=== PATIENT | female | born 1955 | race Caucasian/White ===

== ENCOUNTER 2017-11-20 11:28 | Observation (INO) | payer OTHER ==
[2017-11-20 12:56] LABS: ADD MAN DIFF? NO
[2017-11-20 12:58] LABS: WHITE BLOOD COUNT 6.1 10^3/ul (4.8-10.8)
[2017-11-20 12:58] LABS: BASOPHILS % 0.3 % (0.0-2.0); EOSINOPHILS % 0.5 % (0.0-7.0); HEMATOCRIT 41.2 % (37.0-47.0); HEMOGLOBIN 13.6 g/dl (12.0-16.0); LYMPHOCYTES # 1.6 10^3/ul (0.8-2.9); LYMPHOCYTES % 26.4 % (15.0-51.0); MEAN CORPUSCULAR VOLUME 90.7 fl (82.0-101.0); MEAN PLATELET VOLUME 10.4 fl (7.4-10.4); MONOCYTE # 0.3 10^3/ul (0.3-0.9); MONOCYTES % 5.2 % (0.0-11.0); NEUTROPHIL # 4.1 10^3/ul (1.6-7.5); NEUTROPHILS % 67.4 % (39.0-77.0); PLATELET COUNT 215 10^3/UL (140-415); RED BLOOD COUNT 4.54 10^6/ul (4.20-5.40); RED CELL DISTRIBUTION WIDTH 11.9 % (11.5-14.5)
[2017-11-20] MEDS: SOD CHLORIDE 0.9% 1,000 ML IV ×2 (13:01→23:19)
[2017-11-20 13:19] LABS: ANION GAP 14 (8-16); BLOOD UREA NITROGEN 13 mg/dl (7-20); CALCIUM 8.9 mg/dl (8.4-10.2); CARBON DIOXIDE 24 mmol/L (21-31); CHLORIDE 111 mmol/L (97-110); CREATININE 0.71 mg/dl (0.44-1.00); GLUCOSE 108 mg/dl (70-220); MAGNESIUM 2.1 mg/dl (1.7-2.5); POTASSIUM 3.8 mmol/L (3.5-5.1); SODIUM 145 mmol/L (135-144)
[2017-11-20 13:28] LABS: TROPONIN-I < 0.010 ng/ml (0.000-0.120)
[2017-11-20] MEDS: hydrALAzine 20 MG INJ IV ×2 (14:23→17:32)
[2017-11-20] MEDS ORDERED: HYDROCODONE/APAP (5/325) TAB PO (16:30)
[2017-11-20] MEDS ORDERED: ONDANSETRON 4 MG INJ IV ×2 (16:30)
[2017-11-20] MEDS ORDERED: NACL 0.9% 3 ML SYG IV (16:30)
[2017-11-20] MEDS ORDERED: ACETAMINOPHEN 325 MG TAB PO ×2 (16:30)
[2017-11-20] MEDS ORDERED: BISACODYL (EC) 5 MG TAB PO (16:30)
[2017-11-20] MEDS ORDERED: LORAZEPAM 0.5 MG TAB PO ×2 (16:30)
[2017-11-20] MEDS ORDERED: morphine 2 MG INJ IV (16:30)
[2017-11-20 16:39] LABS: FREE T4 (FREE THYROXINE) 0.81 ng/dl (0.78-2.44)
[2017-11-20 17:41] LABS: CREATINE KINASE 70 IU/L (23-200)
[2017-11-20 17:54] LABS: CK INDEX 2.7; CK-MB 1.87 ng/ml (0.0-2.4); TROPONIN-I < 0.010 ng/ml (0.000-0.120)
[2017-11-20] MEDS: METOPROLOL 5 MG INJ IV ×2 (19:36→20:13)
[2017-11-20] MEDS: DILTIAZEM-D5W 125MG/125ML DRIP 125 ML IV (21:40)
[2017-11-20] MEDS ORDERED: HEPARIN 5,000 UNIT/0.5 ML VIAL SC (22:00)
[2017-11-20 23:12] LABS: CREATINE KINASE 66 IU/L (23-200)
[2017-11-20] MEDS: ATORVASTATIN 20 MG TAB PO (23:20)
[2017-11-20 23:23] LABS: CK INDEX 2.6; CK-MB 1.69 ng/ml (0.0-2.4); TROPONIN-I < 0.010 ng/ml (0.000-0.120)
[2017-11-20] MEDS: METOPROLOL 25 MG TAB PO (23:23)
[2017-11-20] MEDS: APIXABAN 5 MG TABLET PO (23:23)
[2017-11-21] MEDS: DILTIAZEM-D5W 125MG/125ML DRIP 125 ML IV ×2 (00:22→06:25)
[2017-11-21 07:25] LABS: ADD MAN DIFF? NO
[2017-11-21 07:34] LABS: BASOPHILS % 0.4 % (0.0-2.0); EOSINOPHILS # 0.1 10^3/ul (0.0-0.5); EOSINOPHILS % 0.8 % (0.0-7.0); HEMATOCRIT 45.4 % (37.0-47.0); HEMOGLOBIN 14.7 g/dl (12.0-16.0); LYMPHOCYTES # 2.5 10^3/ul (0.8-2.9); LYMPHOCYTES % 29.7 % (15.0-51.0); MEAN CORPUSCULAR HEMOGLOBIN 29.3 pg (29.0-33.0); MEAN CORPUSCULAR HGB CONC 32.4 g/dl (32.0-37.0); MEAN CORPUSCULAR VOLUME 90.4 fl (82.0-101.0); MEAN PLATELET VOLUME 10.9 fl (7.4-10.4); MONOCYTE # 0.5 10^3/ul (0.3-0.9); MONOCYTES % 6.3 % (0.0-11.0); NEUTROPHIL # 5.4 10^3/ul (1.6-7.5); NEUTROPHILS % 62.6 % (39.0-77.0); PLATELET COUNT 239 10^3/UL (140-415); RED BLOOD COUNT 5.02 10^6/ul (4.20-5.40); RED CELL DISTRIBUTION WIDTH 12.4 % (11.5-14.5)
[2017-11-21 07:34] LABS: WHITE BLOOD COUNT 8.6 10^3/ul (4.8-10.8)
[2017-11-21 08:11] LABS: HEMOGLOBIN A1C 5.8 % (0-5.9)
[2017-11-21 08:15] LABS: ALANINE AMINOTRANSFERASE 23 IU/L (13-69); ALBUMIN 4.4 g/dl (3.3-4.9); ALBUMIN/GLOBULIN RATIO 1.33; ALKALINE PHOSPHATASE 59 IU/L (42-121); ANION GAP 15 (8-16); ASPARTATE AMINO TRANSFERASE 23 IU/L (15-46); BILIRUBIN,INDIRECT 1.2 mg/dl (0-1.1); BILIRUBIN,TOTAL 1.2 mg/dl (0.2-1.3); BLOOD UREA NITROGEN 11 mg/dl (7-20); CALCIUM 8.9 mg/dl (8.4-10.2); CARBON DIOXIDE 23 mmol/L (21-31); CHLORIDE 111 mmol/L (97-110); CHOL/HDL RATIO 3.6 RATIO; CHOLESTEROL 169 mg/dl (100-200); CREATININE 0.63 mg/dl (0.44-1.00); GLUCOSE 109 mg/dl (70-220); HDL CHOLESTEROL 46 mg/dl (35-98); LDL CHOLESTEROL,CALCULATED 103 mg/dl; MAGNESIUM 2.1 mg/dl (1.7-2.5); POTASSIUM 3.7 mmol/L (3.5-5.1); SODIUM 145 mmol/L (135-144); TOTAL PROTEIN 7.7 g/dl (6.1-8.1); TRIGLYCERIDES 102 mg/dl (0-149)
[2017-11-21] MEDS: METOPROLOL 25 MG TAB PO ×3 (08:46→20:42)
[2017-11-21] MEDS: LOSARTAN 50 MG TAB PO (08:46)
[2017-11-21] MEDS: APIXABAN 5 MG TABLET PO ×2 (08:46→20:42)
[2017-11-21] MEDS: PAROXETINE 20 MG TAB PO (08:46)
[2017-11-21] MEDS ORDERED: ERGOCALCIFEROL (8000 UNITS/ML PO SYG) PO (09:00)
[2017-11-21] MEDS: ERGOCALCIFEROL (8000 UNITS/ML PO SYG) PO (10:18)
[2017-11-21] MEDS: POTASSIUM CHLORIDE (SR) 20 MEQ TAB PO (13:43)
[2017-11-21] MEDS: SOD CHLORIDE 0.9% 1,000 ML IV (16:22)
[2017-11-21] MEDS: AMIODARONE 200 MG TAB PO ×2 (16:28→20:42)
[2017-11-21] MEDS: ATORVASTATIN 20 MG TAB PO (20:42)
[2017-11-22 06:55] LABS: ADD MAN DIFF? NO
[2017-11-22 06:59] LABS: BASOPHILS % 0.3 % (0.0-2.0); EOSINOPHILS # 0.2 10^3/ul (0.0-0.5); EOSINOPHILS % 1.6 % (0.0-7.0); HEMATOCRIT 42.7 % (37.0-47.0); HEMOGLOBIN 13.5 g/dl (12.0-16.0); LYMPHOCYTES # 3.7 10^3/ul (0.8-2.9); LYMPHOCYTES % 39.3 % (15.0-51.0); MEAN CORPUSCULAR HEMOGLOBIN 29.2 pg (29.0-33.0); MEAN CORPUSCULAR HGB CONC 31.6 g/dl (32.0-37.0); MEAN CORPUSCULAR VOLUME 92.2 fl (82.0-101.0); MEAN PLATELET VOLUME 10.8 fl (7.4-10.4); MONOCYTE # 0.6 10^3/ul (0.3-0.9); MONOCYTES % 5.9 % (0.0-11.0); NEUTROPHILS % 52.7 % (39.0-77.0); PLATELET COUNT 231 10^3/UL (140-415); RED BLOOD COUNT 4.63 10^6/ul (4.20-5.40); RED CELL DISTRIBUTION WIDTH 12.7 % (11.5-14.5)
[2017-11-22 06:59] LABS: WHITE BLOOD COUNT 9.5 10^3/ul (4.8-10.8)
[2017-11-22 08:01] LABS: ALBUMIN 4.3 g/dl (3.3-4.9); ANION GAP 11 (8-16); BLOOD UREA NITROGEN 17 mg/dl (7-20); CALCIUM 8.6 mg/dl (8.4-10.2); CARBON DIOXIDE 26 mmol/L (21-31); CHLORIDE 112 mmol/L (97-110); GLUCOSE 92 mg/dl (70-220); MAGNESIUM 2.1 mg/dl (1.7-2.5); PHOSPHORUS 3.1 mg/dl (2.5-4.9); POTASSIUM 4.2 mmol/L (3.5-5.1); SODIUM 145 mmol/L (135-144)
[2017-11-22] MEDS: PAROXETINE 20 MG TAB PO (09:25)
[2017-11-22] MEDS: APIXABAN 5 MG TABLET PO (09:25)
[2017-11-22] MEDS: AMIODARONE 200 MG TAB PO ×2 (09:25→13:23)
[2017-11-22] MEDS: METOPROLOL 25 MG TAB PO (09:25)
[2017-11-22] MEDS: LOSARTAN 50 MG TAB PO (09:25)
[2017-11-22] MEDS: ERGOCALCIFEROL (8000 UNITS/ML PO SYG) PO (09:26)
[2017-11-22] MEDS ORDERED: METOPROLOL 25 MG TAB PO (21:00)
[2017-11-23] MEDS ORDERED: AMIODARONE 200 MG TAB PO (09:00)
[2017-11-23] MEDS ORDERED: METOPROLOL (XL) 25 MG TAB PO (09:00)
== END 2017-11-22 19:11 | disposition home health service (06) ==
LOC: E/R 11:28 → TEL 16:26
DX: R55 Syncope and collapse (principal); R42 Dizziness and giddiness; R07.89 Other chest pain; I10 Essential (primary) hypertension; I48.0 Paroxysmal atrial fibrillation; E78.00 Pure hypercholesterolemia, unspecified; F32.9 Major depressive disorder, single episode, unspecified; M81.0 Age-related osteoporosis without current pathological fracture; F41.9 Anxiety disorder, unspecified; F39 Unspecified mood [affective] disorder; Z79.01 Long term (current) use of anticoagulants; Z83.3 Family history of diabetes mellitus
CPT/HCPCS: 70450; 71045; 80048; 80053; 80061; 80069; 82550; 82553; 83036; 83735; 84439; 84443; 84484; 85025; 93005; 93306; 99291-25; G0378

== ENCOUNTER 2018-10-20 01:38 | Inpatient (IN) | payer OTHER ==
[2018-10-20 03:33] LABS: ADD MAN DIFF? NO
[2018-10-20 03:34] LABS: WHITE BLOOD COUNT 9.3 10^3/ul (4.8-10.8)
[2018-10-20 03:34] LABS: BASOPHILS % 0.3 % (0.0-2.0); EOSINOPHILS % 0.3 % (0.0-7.0); HEMATOCRIT 41.5 % (37.0-47.0); HEMOGLOBIN 13.4 g/dl (12.0-16.0); LYMPHOCYTES # 1.2 10^3/ul (0.8-2.9); LYMPHOCYTES % 12.3 % (15.0-51.0); MEAN CORPUSCULAR HEMOGLOBIN 29.3 pg (29.0-33.0); MEAN CORPUSCULAR HGB CONC 32.3 g/dl (32.0-37.0); MEAN CORPUSCULAR VOLUME 90.6 fl (82.0-101.0); MEAN PLATELET VOLUME 9.9 fl (7.4-10.4); MONOCYTE # 0.3 10^3/ul (0.3-0.9); MONOCYTES % 3.6 % (0.0-11.0); NEUTROPHIL # 7.7 10^3/ul (1.6-7.5); NEUTROPHILS % 83.2 % (39.0-77.0); PLATELET COUNT 257 10^3/UL (140-415); RED BLOOD COUNT 4.58 10^6/ul (4.20-5.40); RED CELL DISTRIBUTION WIDTH 11.9 % (11.5-14.5)
[2018-10-20 03:57] LABS: INR 1.18; PROTIME 15.1 Sec (11.9-14.9); PT RATIO 1.2
[2018-10-20 03:58] LABS: PARTIAL THROMBOPLASTIN TIME 37.7 Sec (23.0-35.0)
[2018-10-20 04:01] LABS: ANION GAP 10 (5-13); BLOOD UREA NITROGEN 19 mg/dl (7-20); CALCIUM 9.4 mg/dl (8.4-10.2); CARBON DIOXIDE 28 mmol/L (21-31); CHLORIDE 101 mmol/L (97-110); CREATININE 0.73 mg/dl (0.44-1.00); Estimated GFR > 60 mL/min (>60); GLUCOSE 123 mg/dl (70-220); POTASSIUM 3.8 mmol/L (3.5-5.1); SODIUM 139 mmol/L (135-144)
[2018-10-20 04:12] LABS: TROPONIN-I 0.013 ng/ml (0.000-0.120)
[2018-10-20 06:54] LABS: TROPONIN-I 0.147 ng/ml (0.000-0.120)
[2018-10-20] MEDS: ASPIRIN 325 MG TAB PO (07:20)
[2018-10-20] MEDS ORDERED: ONDANSETRON 4 MG INJ IV ×3 (09:00→10:00)
[2018-10-20] MEDS ORDERED: ACETAMINOPHEN 325 MG TAB PO ×3 (09:00→10:00)
[2018-10-20] MEDS ORDERED: MAGNESIUM HYDROXIDE 30ML CUP PO (10:00)
[2018-10-20] MEDS ORDERED: ACETAMINOPHEN 650 MG SUPP PR (10:00)
[2018-10-20] MEDS ORDERED: NITROGLYCERIN (SL) 0.4 MG TAB SL (10:00)
[2018-10-20] MEDS ORDERED: NACL 0.9% 3 ML SYG IV (10:00)
[2018-10-20] MEDS ORDERED: HYDROCODONE/APAP (5/325) TAB PO (10:00)
[2018-10-20] MEDS ORDERED: morphine 2 MG INJ IV (10:00)
[2018-10-20] MEDS ORDERED: DOCUSATE SODIUM 100 MG CAP PO (10:00)
[2018-10-20] MEDS ORDERED: BISACODYL 10 MG SUPP PR (10:00)
[2018-10-20] MEDS: ENOXAPARIN 60 MG/0.6 ML SYG SC ×2 (10:57→21:00)
[2018-10-20] MEDS: FAMOTIDINE 20 MG INJ IV ×2 (10:57→20:54)
[2018-10-20] MEDS ORDERED: ENOXAPARIN 100 MG/ML SYG SC ×2 (11:00→21:00)
[2018-10-20 11:11] LABS: CREATINE KINASE 101 IU/L (23-200)
[2018-10-20 11:24] LABS: CK INDEX 4.9; CK-MB 4.93 ng/ml (0.0-2.4)
[2018-10-20] MEDS ORDERED: hydrALAzine (1 MG/ML) IV SYG IV (13:30)
[2018-10-20 16:09] LABS: CREATINE KINASE 84 IU/L (23-200)
[2018-10-20 16:21] LABS: CK INDEX 5.3; CK-MB 4.43 ng/ml (0.0-2.4)
[2018-10-20 16:24] LABS: TROPONIN-I 0.164 ng/ml (0.000-0.120)
[2018-10-20] MEDS: LOSARTAN 50 MG TAB PO (16:39)
[2018-10-20] MEDS: AMIODARONE 200 MG TAB PO (16:39)
[2018-10-20] MEDS: hydrALAzine 20 MG INJ IV (18:28)
[2018-10-20] MEDS: ATORVASTATIN 20 MG TAB PO (20:54)
[2018-10-21 06:11] LABS: ADD MAN DIFF? NO
[2018-10-21 06:14] LABS: BASOPHILS % 0.4 % (0.0-2.0); EOSINOPHILS # 0.2 10^3/ul (0.0-0.5); EOSINOPHILS % 2.8 % (0.0-7.0); HEMATOCRIT 42.1 % (37.0-47.0); HEMOGLOBIN 13.9 g/dl (12.0-16.0); LYMPHOCYTES # 1.9 10^3/ul (0.8-2.9); LYMPHOCYTES % 33.6 % (15.0-51.0); MEAN CORPUSCULAR HEMOGLOBIN 29.6 pg (29.0-33.0); MEAN CORPUSCULAR VOLUME 89.8 fl (82.0-101.0); MEAN PLATELET VOLUME 10.1 fl (7.4-10.4); MONOCYTE # 0.4 10^3/ul (0.3-0.9); MONOCYTES % 6.5 % (0.0-11.0); NEUTROPHIL # 3.2 10^3/ul (1.6-7.5); NEUTROPHILS % 56.5 % (39.0-77.0); PLATELET COUNT 279 10^3/UL (140-415); RED BLOOD COUNT 4.69 10^6/ul (4.20-5.40); RED CELL DISTRIBUTION WIDTH 12.5 % (11.5-14.5)
[2018-10-21 06:14] LABS: WHITE BLOOD COUNT 5.7 10^3/ul (4.8-10.8)
[2018-10-21 06:49] LABS: ALANINE AMINOTRANSFERASE 27 IU/L (13-69); ALBUMIN/GLOBULIN RATIO 1.33; ALKALINE PHOSPHATASE 55 IU/L (42-121); ANION GAP 10 (5-13); ASPARTATE AMINO TRANSFERASE 22 IU/L (15-46); BILIRUBIN,INDIRECT 0.8 mg/dl (0-1.1); BILIRUBIN,TOTAL 0.8 mg/dl (0.2-1.3); BLOOD UREA NITROGEN 18 mg/dl (7-20); CALCIUM 9.2 mg/dl (8.4-10.2); CARBON DIOXIDE 25 mmol/L (21-31); CHLORIDE 110 mmol/L (97-110); CHOL/HDL RATIO 3.4 RATIO; CHOLESTEROL 138 mg/dl (100-200); Estimated GFR > 60 mL/min (>60); GLUCOSE 96 mg/dl (70-220); HDL CHOLESTEROL 40 mg/dl (35-98); LDL CHOLESTEROL,CALCULATED 81 mg/dl; MAGNESIUM 2.2 mg/dl (1.7-2.5); PHOSPHORUS 3.5 mg/dl (2.5-4.9); POTASSIUM 3.9 mmol/L (3.5-5.1); SODIUM 145 mmol/L (135-144); TRIGLYCERIDES 84 mg/dl (0-149)
[2018-10-21 06:58] LABS: FREE THYROXINE INDEX (Calc) 3.84 ug/ml (0.65-3.89); T3 UPTAKE 35.6 % (23.5-40.5); T4 (THYROXINE) 10.8 ug/dl (5.5-11.0)
[2018-10-21 07:00] LABS: HEMOGLOBIN A1C 5.1 % (0-5.9)
[2018-10-21] MEDS: FAMOTIDINE 20 MG INJ IV (08:38)
[2018-10-21] MEDS: LEVOTHYROXINE 50 MCG TAB PO (08:38)
[2018-10-21] MEDS: AMIODARONE 200 MG TAB PO (08:39)
[2018-10-21] MEDS: LOSARTAN 50 MG TAB PO (08:40)
[2018-10-21] MEDS: ENOXAPARIN 60 MG/0.6 ML SYG SC (08:43)
[2018-10-21] MEDS ORDERED: LOSARTAN 50 MG TAB PO (09:00)
[2018-10-21] MEDS ORDERED: HYDROCHLOROTHIAZIDE 12.5 MG CAP PO (09:00)
[2018-10-21] MEDS ORDERED: AMIODARONE 200 MG TAB PO (09:00)
[2018-10-22] MEDS ORDERED: ASPIRIN 81 MG TAB PO (09:00)
== END 2018-10-21 16:33 | disposition home or self-care (01) | DRG 313 ==
LOC: E/R 01:38 → 6WM 08:54
DX: R07.9 Chest pain, unspecified (principal); I10 Essential (primary) hypertension; E78.5 Hyperlipidemia, unspecified; E03.9 Hypothyroidism, unspecified; I48.91 Unspecified atrial fibrillation; I25.10 Atherosclerotic heart disease of native coronary artery without angina pectoris; Z79.82 Long term (current) use of aspirin
CPT/HCPCS: 36415; 71045; 80048; 80053; 80061; 82550; 82553; 83036; 83735; 84100; 84436; 84443; 84479; 84484; 85025; 85610; 85730; 93005; 93306; 99285-25